=== PATIENT | female | born 1980 | race American Indian/Alaskan Native ===

== ENCOUNTER 2019-04-14 10:43 | Outpatient (CLI) | payer OTHER ==
--- NOTE | 2019-04-14 12:40 | XRay Report ---
Bilateral knees, 2 views INDICATION: BILATERAL PAIN IN KNEES. COMPARISON: None. IMPRESSION: No acute osseous or soft tissue abnormality. No significant DJD. Signer Name: Nicola Schuster Jr, MD Signed: 04/14/2019 12:36 PM Workstation Name: [id number]
--- NOTE | 2019-04-14 12:41 | XRay Report ---
Cervical spine, 3 views INDICATION: PAIN IN NECK. COMPARISON: None. IMPRESSION: Normal alignment. There is straightening of the normal lordosis. Mild to moderate degen erative disc disease is identified at C5-6. Minimal degenerative disc disease at C4-5. The remaining disc levels are within normal limits. Normal facet joints. No acute osseous or soft tissue abnormali ty. Signer Name: Nicola Schuster Jr, MD Signed: 04/14/2019 12:36 PM Workstation Name: [id number]
== END 2019-04-14 10:44 | disposition home or self-care (01) ==
LOC: XRAY 10:43
PROVIDERS: ATTEND Internal Medicine
DX: Z02.71 Encounter for disability determination (principal); M50.322 Other cervical disc degeneration at C5-C6 level; M25.561 Pain in right knee; M25.562 Pain in left knee
CPT/HCPCS: 72040

== ENCOUNTER 2019-06-07 10:26 | Outpatient (CLI) | payer OTHER ==
--- NOTE | 2019-06-07 12:13 | XRay Report ---
LUMBOSACRAL SPINE, 3 VIEWS INDICATION: Back pain. Disability exam COMPARISON: None. IMPRESSION: There is mild dextro curvature to the lumbar spine on the frontal image. Moderate degen erative disc disease with circumferential spurring is noted at L4-5. The remaining disc levels are wi thin normal limits. Mild diffuse facet arthropathy is evident. No acute osseous or soft tissue abnor mality. BILATERAL HIPS 2 VIEWS WITH PELVIS INDICATION: HIP PAIN. COMPARISON: None. IMPRESSION: No acute osseous or soft tissue abnormality. No significant DJD. Signer Name: Nicola Schuster Jr, MD Signed: 06/07/2019 12:08 PM Workstation Name: [id number]
== END 2019-06-07 10:27 | disposition home or self-care (01) ==
LOC: XRAY 10:26
PROVIDERS: ATTEND Internal Medicine
DX: M51.36 Other intervertebral disc degeneration, lumbar region (principal); M25.552 Pain in left hip; M25.551 Pain in right hip
CPT/HCPCS: 72100; 73521